=== PATIENT | female | born 2000 | race Two or more races ===

== ENCOUNTER 2023-08-13 20:13 | Inpatient (IN) | payer OTHER ==
[~2023-08-13] VITALS: Ht 162.6 cm; Wt 66.7 kg
--- NOTE | 2023-08-13 20:35 | NUR ---
PACIENTE DEL DR. PRISCILA TORRES LA MISMA REFIERE QUE TIENE UN QUISTE Y QUE LE DUELE MUCHO EL LADO ARJUN DEL ABDOMEN.
[2023-08-13] MEDS ORDERED: ONDANSETRON HCL 2 MG/ML VIAL IV ONE (21:00)
[2023-08-13] MEDS ORDERED: MEPERIDINE HCL/PF 50 MG/ML VIAL IM ONE (21:00)
[2023-08-13] MEDS ORDERED: 0.9 % SODIUM CHLORIDE 1,000 ML IV SCH (21:00)
--- NOTE | 2023-08-13 21:30 | NUR ---
SE EDUCA A PTE SOBRE TX MEDICO ESTA REFIERE ENTENDER, SE RAUL MUESTRAS DE LABORATORIO UTILIZANDO MEDIDAS ASEPTICAS. SE COLOCA H/L KURT DE EDEMA. SE ADMINISTRAN MEDICAMENTOS LOS CUALES [place]. SE NOTIFICA ESTUDIO DE CT Y SONOGRAFIA PENDIENTE.
[2023-08-13 22:02] LABS: HEMATOCRIT 25.5 % (36.0-45.00); HEMOGLOBIN 8.4 g/dL (12.0-15.00); MEAN CELL VOLUME 78.1 fL (80.00-100.00); MEAN CORPUSCULAR HEMOGLOBIN 25.7 pg (27.00-32.0); MEAN CORPUSCULAR HGB CONC 33.1 g/dl (32.0-36.0); PLATELET COUNT 209 K/uL (150-450); RED BLOOD COUNT 3.26 M/uL (4.00-6.00); RED CELL DISTRIBUTION WIDTH 14.6 % (11.5-14.5)
[2023-08-13 22:20] LABS: INR 1.14; PARTIAL THROMBOPLASTIN TIME 31.9 SECONDS (22.0-34.0); PROTHROMBIN TIME 11.9 SECONDS (9.0-11.5)
[2023-08-13 22:24] LABS: ALBUMIN 3.4 gm/dL (3.4-5.0); BILIRUBIN TOTAL 0.47 mg/dL (0.3-1.2); CALCIUM 8.5 mg/dL (8.5-10.1); CREATININE SERUM 0.71 mg/dL (0.55-1.02); GFR 100.3; GLOBULINA 4.2 G/DL (2.4-3.5); POTASSIUM 3.5 mEq/L (3.5-5.1); TOTAL PROTEIN 7.6 gm/dL (6.4-8.2)
[2023-08-13] MEDS ORDERED: CEFEPIME HCL 2,000 MG in 0.9 % SODIUM CHLORIDE 100 ML IV SCH (23:19)
--- NOTE | 2023-08-13 23:21 | NUR ---
SE RECIBE PTE DEL TURNO ANTERIOR ALERTA Y ORIENTADA X3. SE ORIENTA SOBRE CONTINUIDAD DE CUIDADO. PTE PENDIENTE A CT IV
[2023-08-13 23:56] LABS: PH,URINE 7.5 (5.0-8.0); URINE BILIRRUBIN Negative (NEGATIVE); URINE BLOOD Negative; URINE COLOR Yellow; URINE GLUCOSE Negative (NEGATIVE); URINE LEUKOCYTE Negative; URINE NITRATE Negative; URINE PROTEIN Trace (NEGATIVE)
[2023-08-14] LABS: URINE BACTERIA 409.3 uL (0.0-1933); URINE EPITHELIAL CELLS 26.5 uL (0.0-38.8); URINE RBC 6.1 uL (0.0-20.8); URINE WBC 11.4 uL (0.0-23.2)
[2023-08-14 00:18] LABS: URINE APPEARANCE CLOUDY
[2023-08-14] MEDS ORDERED: POVIDONE-IODINE 118 ML BOTT TOP ONE ×2 (07:18→08:15)
[2023-08-14] MEDS ORDERED: CEFOXITIN SODIUM 2,000 MG VIAL IV ONE ×3 (07:31→11:16)
[2023-08-14] MEDS ORDERED: SUGAMMADEX SODIUM 200 MG/2 ML VIAL IV ONE ×2 (08:18→10:15)
[2023-08-14] MEDS ORDERED: MEPERIDINE HCL/PF 50 MG/ML VIAL IV SCH (09:00)
[2023-08-14] MEDS ORDERED: PROMETHAZINE HCL 25 MG/ML AMPUL IV SCH (09:00)
[2023-08-14] MEDS ORDERED: CEFOXITIN SODIUM 2,000 MG in DEXTROSE 5 % IN WATER 100 ML IV SCH (12:00)
[2023-08-14] MEDS ORDERED: IBUprofen 800 MG TABLET PO SCH (14:00)
[2023-08-14 15:23] LABS: HEMATOCRIT 28.9 % (36.0-45.00); HEMOGLOBIN 9.8 g/dL (12.0-15.00); MEAN CELL VOLUME 77.5 fL (80.00-100.00); MEAN CORPUSCULAR HEMOGLOBIN 26.4 pg (27.00-32.0); PLATELET COUNT 164 K/uL (150-450); RED BLOOD COUNT 3.73 M/uL (4.00-6.00); RED CELL DISTRIBUTION WIDTH 15.2 % (11.5-14.5)
[2023-08-14] MEDS ORDERED: FUROsemide 40 MG/4 ML VIAL IV ONE (18:45)
[2023-08-14] MEDS ORDERED: ACETAMINOPHEN 500 MG GEL..CAP PO PRN (20:00)
[2023-08-15 02:59] LABS: HEMATOCRIT 30.8 % (36.0-45.00); HEMOGLOBIN 10.6 g/dL (12.0-15.00); MEAN CORPUSCULAR HEMOGLOBIN 26.9 pg (27.00-32.0); MEAN CORPUSCULAR HGB CONC 34.5 g/dl (32.0-36.0); PLATELET COUNT 165 K/uL (150-450); RED BLOOD COUNT 3.95 M/uL (4.00-6.00); RED CELL DISTRIBUTION WIDTH 15.4 % (11.5-14.5)
[2023-08-15] MEDS ORDERED: POLYETHYLENE GLYCOL 3350 17 GM BLIST.PACK PO SCH (09:00)
== END 2023-08-16 09:44 | disposition home or self-care (01) | DRG 742 ==
LOC: ER 20:14 → SEC-K 23:23 → O/R 08-14 11:15 → OB/GYN 08-14 13:40
PROVIDERS: General Practice; ADMIT Obstetrics & Gynecology; ATTEND Obstetrics & Gynecology
PROC: 0UT50ZZ Resection of Right Fallopian Tube, Open Approach (ICD-10-PCS; principal; 2023-08-13)
PROC: 0UT00ZZ Resection of Right Ovary, Open Approach (ICD-10-PCS; 2023-08-13)
PROC: BW21YZZ Computerized Tomography (CT Scan) of Abdomen and Pelvis using Other Contrast (ICD-10-PCS; 2023-08-13)
PROC: BW4GZZZ Ultrasonography of Pelvic Region (ICD-10-PCS; 2023-08-13)
PROC: 30233N1 Transfusion of Nonautologous Red Blood Cells into Peripheral Vein, Percutaneous Approach (ICD-10-PCS; 2023-08-14)
DX: N83.53 Torsion of ovary, ovarian pedicle and fallopian tube (principal); K66.1 Hemoperitoneum; N83.201 Unspecified ovarian cyst, right side; R10.2 Pelvic and perineal pain; Z20.822 Contact with and (suspected) exposure to COVID-19